=== PATIENT | female | born 1950 | race Caucasian/White ===

== ENCOUNTER 2019-12-30 07:36 | Inpatient (IN) | payer MEDICARE, OTHER ==
[~2019-12-30] VITALS: Ht 165.1 cm; Wt 113.6 kg
[2019-12-30] VITALS (8 sets, daily range): BP systolic 125–149; BP diastolic 67–80
[~2019-12-30 07:36] MED LIST: ALPR0.5T7 PO; ASPI-543 PO; ATOR40TA52 PO; GLIP10TA9 PO; METF-370 PO; OMEP20TA PO; PIOG1TAB51 PO; TELM80TA PO; VENL225T10 PO
[2019-12-30] MEDS ORDERED: TRANEXAMIC ACID 20 ML ONE (08:22)
[2019-12-30] MEDS ORDERED: BUPIVACAINE 0.25% INJ 50ML VIAL ONE (08:22)
[2019-12-30] MEDS ORDERED: KETOROLAC TROMETH 30 MG/ML 1ML VIAL ONE ×2 (08:23→08:42)
[2019-12-30] MEDS ORDERED: VANCOMYCIN HCL 1000 MG VL ONE ×2 (08:24→08:43)
[2019-12-30] MEDS ORDERED: LIDOCAINE 2% (LOCAL ANESTH.) PF 5ml SDV ONE (08:42)
[2019-12-30] MEDS ORDERED: DexAMETHasone SOD PHOS 10MG/1ML VIAL INJ ONE (08:42)
[2019-12-30] MEDS ORDERED: ONDANSETRON HCL 4 MG/2 ML VIAL ONE (08:42)
[2019-12-30] MEDS ORDERED: fentaNYL CITRATE 100 MCG/2 ML VL ONE (08:42)
[2019-12-30] MEDS ORDERED: PROPOFOL 10 MG/ML 20 ML IV ONE (08:42)
[2019-12-30] MEDS ORDERED: MIDAZOLAM HCL 1MG/1ML-2 ML VIAL ONE (08:42)
[2019-12-30] MEDS ORDERED: MORPHINE SULF(PF) 0.5MG/ML 10ML VIAL ONE (08:42)
[2019-12-30] MEDS ORDERED: GLYCOPYRROLATE 0.2 MG/ML 1ML VIAL ONE (08:42)
[2019-12-30] MEDS ORDERED: PREGABALIN CAPSULE 75 MG CAP ONE (08:43)
[2019-12-30] MEDS ORDERED: CELECOXIB 100 MG CAP PO ONE (08:45)
[2019-12-30] MEDS ORDERED: PREGABALIN CAPSULE 75 MG CAP PO ONE (08:45)
[2019-12-30] MEDS ORDERED: ACETAMINOPHEN IV 1000 MG/100ML (10MG/ML) IV ONE (08:45)
[2019-12-30] MEDS ORDERED: TETRACAINE 1% INJ 2 ML VIAL IJ ONE (08:56)
[2019-12-30] MEDS ORDERED: ROPIVACAINE 0.5% (5MG/ML) 20ML AMPULE IJ ONE (08:56)
[2019-12-30] MEDS: ACCU-CHEK COMFORT CURVE STRIP VI SCH ×3 (11:30→22:21)
[2019-12-30] MEDS ORDERED: ONDANSETRON HCL 4 MG/2 ML VIAL IV PRN ×3 (11:30→12:15)
[2019-12-30] MEDS ORDERED: ACETAMINOPHEN 325 MG TAB PO PRN (11:30)
[2019-12-30] MEDS: InsuLIN REG 1unit/0.01ml Soln (100units/ml) SC SCH ×3 (11:30→22:42)
[2019-12-30] MEDS: LACTATED RINGER'S 1,000 ML IV SCH ×2 (11:30→21:30)
[2019-12-30] MEDS ORDERED: DEXTROSE (50%) 50ML SYRG IV PRN (11:30)
[2019-12-30] MEDS: PIOGLITAZONE HYDROCHLORIDE 30 MG TAB PO SCH (12:00)
[2019-12-30] MEDS ORDERED: ENOXAPARIN SOD 40 MG/0.4 ML SYRINGE SC ONE (12:00)
[2019-12-30] MEDS ORDERED: VENLAFAXINE HCL 37.5mg XR cap PO ONE (12:00)
[2019-12-30] MEDS ORDERED: glipiZIDE 5 MG TAB PO ONE (12:00)
[2019-12-30] MEDS ORDERED: PANTOPRAZOLE 40 MG TAB PO ONE (12:00)
[2019-12-30] MEDS ORDERED: DOCUSATE SOD 100 MG CAP PO ONE (12:00)
[2019-12-30] MEDS ORDERED: diphenhdrAMINE HCL 50 MG/1 ML VL IV PRN (12:15)
[2019-12-30] MEDS ORDERED: NALBUPHINE HCL 10 MG/1ml INJECTION SUBCUT ONE (12:15)
[2019-12-30] MEDS ORDERED: ACCU-CHEK COMFORT CURVE STRIP VI ONE (12:15)
[2019-12-30] MEDS ORDERED: DexAMETHasone SOD PHOS 10MG/1ML VIAL INJ IV PRN (12:15)
[2019-12-30] MEDS ORDERED: NALOXONE HCL 0.4 MG/ML VIAL IV PRN (12:15)
[2019-12-30] MEDS: ALPRAZolam 0.5 MG TAB PO SCH ×2 (14:00→22:00)
[2019-12-30] MEDS: SODIUM CHLOR 0.9% PF (SALINE LOCK) 10ML VIAL/SYR IV SCH ×2 (14:00→22:20)
--- NOTE | 2019-12-30 14:16 | NUR ---
PT AT BEDSIDE
--- NOTE | 2019-12-30 16:00 | NUR ---
PATIENT ARRIVED TO UNIT PATIENT ALERT AND ORIENTED X4 PATIENT ORIENTED TO UNIT STAFF CALL LIGHT AND POC PATIENT VERBALIZED UNDERSTANDING. PATIENT DENIES ALL PAIN AND SOB AND DISTRESS AT THIS TIME. AUTOMATIC CUFF APPLIED TO LEFT ARM BP TAKEN AND DOCUMENTED IN ADMISSION VITALS. PATIENT GIVEN INCENTIVESPIROMETER AND EDUCATED ON USE, PATIENT DEMONSTRATED PROPER USE. BANDAGE TO LEFT KNEE DRY AND INTACT, PULSES PALPABLE BILATERAL TO DORSALIS PEDIS. PATIENT DENIES NUMBNESS IN LEFT FOOT. BED IN LOWEST LOCKED POSITION CALL LIGHT WITHIN REACH WILL CONTINUE TO MONITOR
[2019-12-30] MEDS: glipiZIDE 5 MG TAB PO SCH (17:00)
[2019-12-30] MEDS: HYDROmorphone HCL 2 MG/ML VL IV PRN (17:13)
[2019-12-30] MEDS ORDERED: LEVEMIR SC (17:28)
[2019-12-30] MEDS: metFORMIN HYDROCHLORIDE 500 MG TAB PO SCH (18:20)
[2019-12-30] MEDS: ATORVASTATIN 20 MG TAB PO SCH (18:20)
--- NOTE | 2019-12-30 22:00 | NUR ---
CPM Machine Not Available Patient came to floor with out CPM machine. No one is available to deliver machine till AM.
[2019-12-30] MEDS: VANCOMYCIN 1GM/250ML 250 ML IV SCH (22:19)
[2019-12-30] MEDS: DOCUSATE SOD 100 MG CAP PO SCH (22:21)
[2019-12-31] VITALS (15 sets, daily range): BP systolic 92–159; BP diastolic 53–118
[2019-12-31] MEDS: KETOROLAC TROMETH 30 MG/ML 1ML VIAL IV PRN ×2 (03:41→09:55)
[2019-12-31] MEDS: ALPRAZolam 0.5 MG TAB PO SCH ×3 (06:00→22:13)
[2019-12-31] MEDS: SODIUM CHLOR 0.9% PF (SALINE LOCK) 10ML VIAL/SYR IV SCH ×3 (06:32→22:13)
[2019-12-31] MEDS: glipiZIDE 5 MG TAB PO SCH ×2 (06:33→17:10)
[2019-12-31] MEDS: InsuLIN REG 1unit/0.01ml Soln (100units/ml) SC SCH ×4 (06:34→22:56)
[2019-12-31] MEDS: ACCU-CHEK COMFORT CURVE STRIP VI SCH ×4 (06:36→22:13)
--- NOTE | 2019-12-31 07:07 | NUR ---
ASSUMED CARE OF PATIENT AWAKE AND ALERT. ASSISTED PATIENT WITH ADLS. RESPIRATIONS EVEN AND UNLABORED AT THIS TIME. UPDATED PATIENT ON PLAN OF CARE AND TO CALL FOR ASSISTANCE IF NEEDED. SIDE RAILS UP X 2, HOB ELEVATED AT LEAST 30 DEGREES, CALL LIGHT IS WITHIN REACH AND BED LOCKED IN LOWEST POSITION.
[2019-12-31 07:12] LABS: Hematocrit 34.1 % (36.0-46.0); Hemoglobin 11.6 g/dL (12.2-16.2)
[2019-12-31 07:17] LABS: Albumin 2.9 g/dL (3.4-5.0); Calcium 8.2 mg/dL (8.5-10.1); Potassium 3.9 mmol/L (3.5-5.1)
[2019-12-31 07:21] LABS: BUN/Creatinine Ratio 27.6; Bilirubin, Total 0.4 mg/dL (0.2-1.0)
[2019-12-31] MEDS: LACTATED RINGER'S 1,000 ML IV SCH ×2 (07:30→17:13)
--- NOTE | 2019-12-31 07:30 | NUR ---
PATIENT REFUSED D/C OF DIAMOND CATHETER. PATIENT VERBALIZED THAT SHE WANTS TO WORK MORE WITH PHYSICAL THERAPY BEFORE REMOVAL OF DIAMOND CATHETER BECAUSE SHE DOES NOT FEEL READY TO AMBULATE TO THE BATHROOM YET.
--- NOTE | 2019-12-31 08:45 | NUR ---
ORTHO PAGED REGARDING CPM MACHINE. AWAITING CALL BACK . CONTINUE CARE.
[2019-12-31] MEDS: VANCOMYCIN 1GM/250ML 250 ML IV SCH (10:08)
[2019-12-31] MEDS: DOCUSATE SOD 100 MG CAP PO SCH ×2 (10:09→22:13)
[2019-12-31] MEDS: LOSARTAN POTASSIUM 50 MG TAB PO SCH (10:10)
[2019-12-31] MEDS: VENLAFAXINE HCL 37.5mg XR cap PO SCH (10:10)
[2019-12-31] MEDS: PANTOPRAZOLE 40 MG TAB PO SCH (10:11)
[2019-12-31] MEDS: ENOXAPARIN SOD 40 MG/0.4 ML SYRINGE SC SCH (10:11)
[2019-12-31] MEDS: PIOGLITAZONE HYDROCHLORIDE 30 MG TAB PO SCH (10:46)
[2019-12-31] MEDS: HYDROmorphone HCL 2 MG/ML VL IV PRN ×4 (11:54→22:14)
--- NOTE | 2019-12-31 16:01 | NUR ---
assessment Patient is a 69 year old female who is alert and oriented. Patients cognitive abilities are intact. Patients emotional state is stable. Prior to admission patient lived home with family and functioned independently. Patient informed me she is able to care for her own ADLs. Per patient she will return home to her prior living arrangements post discharge and family will transport her home. Patient has a fww and a cane for home use. Patients PCP is Dr Bay. Patient has been admitted for elective knee replacement. I informed patient she has a consult for home health physical therapy. Patient has been provided with a list of medicare providers. Patient has signed for [facility]. MD order has been sent to [facility]. Per Chloe at [facility] she has accepted patient for service within 48 hours of discharge. Waiting on discharge now. I informed patient she has a right to speak to a social security assessor regarding all care. I informed patient she has a right to participate in any and all discharge planning. Patient does not have a POA and advanced directive. I have offered patient information on POA and advanced directives. I informed the patient the advantages and benefits of having an Advanced Directive. Patient verbalized understanding and agreed to discharge plan. Addendum: 12/31/19 at 1606 by Batsheva HERNANDEZ Amended: Links added. Addendum: 01/01/20 at 1115 by LONDON HERNANDEZ [facility] faxed Home health orders to Chloe from [facility], patient requested patient to go to [facility]. Chloe from [facility], informed [facility] Blue, on 01/01/2020 that she was contacted by Juan José Pierson patient . And he declined services at [facility], and wanted his to be transfer to [facility]. [facility], contacted the to clarify his decision and care needs for the patient. Patient verify that he wanted his to transfer to [facility]. [facility]. ARG[facility]INA TOMPKINS contacted Chloe from [facility] to canceled previous arrangement for patient to transfer to [facility].
--- NOTE | 2019-12-31 16:51 | NUR ---
IV insertion IV access obtained, via clean sterile technique by inserting 22 gauge catheter at left ac after 1 attempt. IV secured properly. No trauma to site. Patient tolerated well.
[2019-12-31] MEDS: metFORMIN HYDROCHLORIDE 500 MG TAB PO SCH (18:11)
[2019-12-31] MEDS: ATORVASTATIN 20 MG TAB PO SCH (18:11)
--- NOTE | 2019-12-31 19:28 | NUR ---
ENDORSED CARE TO NOC SHIFT RN
--- NOTE | 2019-12-31 21:00 | NUR ---
Contacted hospitalist regarding pt's 10/10 pain to left knee. TUBE BENDER HAND ordered one time prn pain medication. Order placed.
[2019-12-31] MEDS ORDERED: KETOROLAC TROMETH 30 MG/ML 1ML VIAL IV ONE (21:45)
[2020-01-01] MEDS: LACTATED RINGER'S 1,000 ML IV SCH ×3 (00:59→22:47)
[2020-01-01] MEDS: HYDROmorphone HCL 2 MG/ML VL IV PRN ×5 (02:48→22:45)
[2020-01-01 04:59] VITALS: BP 151/77
[2020-01-01] MEDS: SODIUM CHLOR 0.9% PF (SALINE LOCK) 10ML VIAL/SYR IV SCH ×3 (05:47→22:00)
[2020-01-01] MEDS: ACCU-CHEK COMFORT CURVE STRIP VI SCH ×4 (05:48→22:00)
[2020-01-01] MEDS: InsuLIN REG 1unit/0.01ml Soln (100units/ml) SC SCH ×4 (05:49→22:00)
[2020-01-01] MEDS: glipiZIDE 5 MG TAB PO SCH ×2 (06:05→17:46)
[2020-01-01] MEDS: ALPRAZolam 0.5 MG TAB PO SCH ×3 (06:06→22:00)
[2020-01-01 06:21] LABS: Hematocrit 34.3 % (36.0-46.0); Hemoglobin 11.8 g/dL (12.2-16.2)
--- NOTE | 2020-01-01 07:00 | NUR ---
OPENING SHIFT NOTE RECEIVED REPORT ON THE PATIENT. AWAKE LYING IN BED. PATIENTS SHOWS NO SIGNS OF DISTRESS AT THIS TIME. DISCUSSED THE PLAN OF CARE WITH THE PATIENT. BED IN LOWEST POSITION, SIDE RAILS UP X2, AND THE CALL LIGHT IS WITHIN REACH.
--- NOTE | 2020-01-01 07:35 | NUR ---
RUBA SOCCER COACH AT BEDSIDE. INFORMED HER THAT THE PATIENT IS REFUSING TO D/C THE DIAMOND. WAS TOLD TO LEAVE IT UNTIL TOMORROW. ALSO INFORMED HER THAT I WAS TOLD THAT THE PATIENT ONLY USED THE CPM FOR 1 HOUR YESTERDAY. RUBA TOLD ME TO TRY TO DO MORE AND BREAK IT UP THROUGHOUT THE DAY.
[2020-01-01 09:12] VITALS: BP 142/68
[2020-01-01] MEDS: PANTOPRAZOLE 40 MG TAB PO SCH (10:02)
[2020-01-01] MEDS: ENOXAPARIN SOD 40 MG/0.4 ML SYRINGE SC SCH (10:02)
[2020-01-01] MEDS: LOSARTAN POTASSIUM 50 MG TAB PO SCH (10:02)
[2020-01-01] MEDS: VENLAFAXINE HCL 37.5mg XR cap PO SCH (10:02)
[2020-01-01] MEDS: DOCUSATE SOD 100 MG CAP PO SCH ×2 (10:02→22:40)
--- NOTE | 2020-01-01 10:03 | NUR ---
PATIENT HAS 9/10 PAIN IN LEFT KNEE. MEDICATION GIVEN.
--- NOTE | 2020-01-01 10:15 | NUR ---
CA FROM DR ABURTO'S OFFICE CALLED AND INFORMED ME THAT THE HOME HEALTH WILL BE WITH [facility] WITH [facility]. CA ALSO STATED TO MAKE SURE THE PATIENT TAKES THE CMP MACHINE HOME.
--- NOTE | 2020-01-01 11:05 | NUR ---
RUBA VILA CALLED AND STATED THAT THE PATIENT'S HAS CALLED DR ABURTO STATING THAT HER PAIN IS NOT BEING MANAGED. PATIENT IS GETTING PAIN MEDICATIONS SOON THEY ARE DUE. RUBA ADVISED THAT THE PATIENT MAY NEED TO GO TO A SNF FOR REHAB. WILL CONTINUE TO MONITOR.
[2020-01-01] MEDS: OXYCODONE W/ ACETAMINOPHEN 5/325MG TABLET PO PRN ×2 (11:06→16:04)
--- NOTE | 2020-01-01 11:06 | NUR ---
PATIENT STATED THAT SHE IS STILL HAVING PAIN. MORE PAIN MEDICATION GIVEN.
[2020-01-01 13:26] VITALS: BP 165/84
[2020-01-01] MEDS: PIOGLITAZONE HYDROCHLORIDE 30 MG TAB PO SCH (13:29)
[2020-01-01 16:29] VITALS: BP 155/81
[2020-01-01] MEDS: metFORMIN HYDROCHLORIDE 500 MG TAB PO SCH (17:48)
[2020-01-01] MEDS: ATORVASTATIN 20 MG TAB PO SCH (17:48)
[2020-01-01 22:00] VITALS: BP 150/68
[2020-01-02 05:00] VITALS: BP 162/84
[2020-01-02] MEDS: SODIUM CHLOR 0.9% PF (SALINE LOCK) 10ML VIAL/SYR IV SCH (06:00)
[2020-01-02] MEDS: ALPRAZolam 0.5 MG TAB PO SCH (06:00)
[2020-01-02] MEDS: HYDROmorphone HCL 2 MG/ML VL IV PRN (06:15)
[2020-01-02 06:56] LABS: Hematocrit 35.8 % (36.0-46.0); Hemoglobin 12.2 g/dL (12.2-16.2)
[2020-01-02] MEDS: glipiZIDE 5 MG TAB PO SCH (07:03)
[2020-01-02] MEDS: ACCU-CHEK COMFORT CURVE STRIP VI SCH (07:05)
[2020-01-02] MEDS: InsuLIN REG 1unit/0.01ml Soln (100units/ml) SC SCH (07:05)
--- NOTE | 2020-01-02 07:25 | NUR ---
DR ABURTO AND CADENCE YEH AT BEDSIDE. NEW ORDERS RECEIVED.
[2020-01-02 08:29] VITALS: BP 155/82
[2020-01-02] MEDS: DOCUSATE SOD 100 MG CAP PO SCH (09:08)
[2020-01-02] MEDS: LOSARTAN POTASSIUM 50 MG TAB PO SCH (09:09)
[2020-01-02] MEDS: ENOXAPARIN SOD 40 MG/0.4 ML SYRINGE SC SCH (09:09)
[2020-01-02] MEDS: PANTOPRAZOLE 40 MG TAB PO SCH (09:09)
[2020-01-02] MEDS: VENLAFAXINE HCL 37.5mg XR cap PO SCH (09:09)
[2020-01-02] MEDS: LACTATED RINGER'S 1,000 ML IV SCH (09:11)
--- NOTE | 2020-01-02 09:32 | NUR ---
EDUCATED THE PATIENT ON HOW TO GIVE HERSELF THE LOVENOX INJECTIONS. PATIENT GOT VERBAL INSTRUCTIONS AND THEN DEMONSTRATED THE INJECTION ON HERSELF.
--- NOTE | 2020-01-02 09:39 | NUR ---
D/C'D DIAMOND. PATIENT TOLERATED WELL.
--- NOTE | 2020-01-02 12:11 | NUR ---
Discharge instructions given as ordered. Encourage to follow up with PMD as instructed. All questions and concerns addressed. Patient verbalized understanding. Medication reconciliation form completed and copy given to patient. IV removed with catheter intact, pressure dressing applied, kamara catheter removed. Telemetry unit returned to ICU. Patient taken to vehicle via wheelchair with all personal belongings, accompanied by staff and family member. No distress noted at time of departure.
== END 2020-01-02 12:10 | disposition home health service (06) | DRG 470 ==
LOC: TELE 07:36 → EDSTATUS 08:15 → TELE-CENTR 16:03
PROVIDERS: ADMIT Orthopaedic Surgery Adult Reconstructive Orthopaedic Surgery; ATTEND Orthopaedic Surgery Adult Reconstructive Orthopaedic Surgery
PROC: 0SRD0J9 Replacement of Left Knee Joint with Synthetic Substitute, Cemented, Open Approach (ICD-10-PCS; principal; 2019-12-30 09:23)
DX: M17.12 Unilateral primary osteoarthritis, left knee (principal); M21.062 Valgus deformity, not elsewhere classified, left knee; Z20.828 Contact with and (suspected) exposure to other viral communicable diseases
CPT/HCPCS: 36415; 73560; 80053; 82962; 85014; 85018; 86850; 86900; 86901; 97110; 97116; 97163; 97530; G0378; J0131; J1100; J1815; J1885; J2001; J2250; J2405; J2704; J3490